=== PATIENT | male | born 1970 | race Caucasian/White ===

== ENCOUNTER 2016-11-28 08:29 | Emergency (ER) | payer OTHER ==
[2016-11-28 08:49] VITALS: BP 127/88; PULSE 64; RESP 16; TEMP 98.1; O2SAT 98
[2016-11-28] MEDS ORDERED: IBUPROFEN 600 MG TAB PO ONE (09:42)
--- NOTE | 2016-11-28 09:42 | EDPHY ---
H & P Stated Complaint: L shoulder pain after tripping and fall on it 2 days ago Source: Patient Exam Limitations: No limitations - Personal History Current Tetanus Diphtheria and Acellular Pertussis (TDAP): Yes - Medical/Surgical History Other PMH: neg - Social History Smoking Status: Never smoked HPI/ROS: CHIEF COMPLAINT: Shoulder pain, fall HISTORY OF PRESENT ILLNESS: Patient complains of left shoulder pain status post fall on Monday. He was at work with the [employer] when he slipped on a log. He landed on his left side with his left arm abducted. He immediately felt a sudden onset of pain and heard "a crunch" when he landed. No numbness or tingling. No head injury. He has no headache or neck pain. He has severe pain in the left shoulder. Difficulty abducting the shoulder. No chest pain or shortness of breath. No injury elsewhere. 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 No other associated complaints or modifying factors. Right-hand dominant. ESTABLISHED ORTHOPEDIST: None REVIEW OF SYSTEMS: Ten systems reviewed and are negative unless otherwise noted in the HPI PAST MEDICAL HISTORY: Reviewed PAST SURGICAL HISTORY: Reviewed SOCIAL HISTORY: Nonsmoker. Works for the [employer] FAMILY HISTORY: Noncontributory EXAMINATION General Appearance: Alert, no distress Cardiovascular: Pulses normal throughout. Symmetric radial pulses 2+. Brisk cap refill Neurological: A&O, sensory symmetric, strength symmetric. No wrist drop. Skin: Warm and dry, no rash. No lacerations abrasions or contusions Extremities: Tenderness to palpation of the left shoulder joint. There is no crepitus, apprehension or instability. There is pain with abduction and flexion. Negative Yergason's speed. Equivocal empty can test. Range of motion of the elbow is symmetric to the right upper extremity. Neurovascular intact distal to the area of pain Psychiatric: Mood and affect normal DIFFERENTIAL DIAGNOSES: Including but not limited to slap tear, sprain, rotator cuff strain, rotator cuff tear, AC sprain MDM: 9:42 a.m. Left shoulder sprain/strain without any fracture on x-ray. I suspect this is slap injury versus rotator cuff injury. X-ray pending 9:50 a.m. Acute left shoulder pain that is likely injury to the rotator cuff or cartilage. There is no bony abnormality on x-ray. Range of motion consistent with both slap injury or rotator cuff injury. He is neurovascular intact. I offered a sling for comfort with instructions to remove the sling often for range of motion. Recommend ibuprofen 600 mg every 8 hours. Recommend follow- up worker's compensation Clinic for further care. Recommend light duty until seen at the worker's compensation Clinic. Patient is comfortable with this plan and discharged home stable condition, neurovascular intact ED Precautions: Worsening pain. Erythema, edema, cyanosis, pallor, paresthesia or anesthesia. (Oj Clark) Constitutional: Initial Vital Signs Temperature (C) 36.7 C 11/28/16 08:35 Heart Rate 64 11/28/16 08:35 Respiratory Rate 16 11/28/16 08:35 Blood Pressure 127/88 H 11/28/16 08:35 O2 Sat (%) 98 11/28/16 08:35 O2 Delivery Mode Room Air Allergies/Adverse Reactions: No Known Allergies Allergy (Unverified 11/28/16 08:46) Home Medications: Medication Instructions Recorded NK [No Known Home Meds] 11/28/16 Medical Decision Making ED Course/Re-evaluation: The patient was evaluated and managed by the physician front office assistant. I have reviewed this chart and I agree with the findings and plan of care as documented , as indicated by my signature. I am the secondary supervising physician. ( Wilma Jane) - Data Points Medications Given: Discontinued Medications Ibuprofen (Motrin) 600 mg PO EDNOW ONE Stop: 11/28/16 09:43 Last Admin: 11/28/16 09:46 Dose: 600 mg Departure - Departure Disposition: Home, Routine, Self-Care Clinical Impression: Shoulder sprain, Left shoulder strain Condition: Good Instructions: Rotator Cuff Injury (ED), Shoulder Sprain (ED) Additional Instructions: 1. Light duty until seen by worker's compensation Clinic 2. Ibuprofen 600 mg every 8 hours 3. ED precautions Referrals: Rebecca Sewell MD [Medical Doctor] - As per Instructions Stand Alone Forms: Work Limited Duty, Work Comp Follow Up
== END 2016-11-28 10:00 | disposition home or self-care (01) ==
DX: S46.912A Strain of unspecified muscle, fascia and tendon at shoulder and upper arm level, left arm, initial encounter (principal); S43.402A Unspecified sprain of left shoulder joint, initial encounter; W01.0XXA Fall on same level from slipping, tripping and stumbling without subsequent striking against object, initial encounter; Y92.69 Other specified industrial and construction area as the place of occurrence of the external cause; Y99.0 Civilian activity done for income or pay; Y93.89 Activity, other specified